=== PATIENT | female | born 1965 | race Caucasian/White ===

== ENCOUNTER 2022-06-15 09:51 | Emergency (ER) | payer OTHER ==
[~2022-06-15] VITALS: Ht 165.1 cm; Wt 81.8 kg
[2022-06-15 09:52] VITALS: BP 179/89
[2022-06-15] MEDS ORDERED: PANT20TA6 PO (10:08)
[2022-06-15] MEDS ORDERED: CYMB60CA4 PO (10:08)
[2022-06-15] MEDS ORDERED: ONDANSETRON 4MG ORAL DISINTEGRATING TAB PO ONE (11:45)
[2022-06-15] MEDS ORDERED: KETOROLAC TROMETHAMINE 10 MG TAB PO ONE (11:45)
[2022-06-15] MEDS ORDERED: ONDA4TAB6 PO (11:45)
[2022-06-15] MEDS ORDERED: MECL1TAB31 PO (11:45)
[2022-06-15] MEDS ORDERED: BACL10TA2 PO (11:45)
== END 2022-06-15 12:01 | disposition home or self-care (01) ==
LOC: M ED 09:51
DX: S06.0X0A Concussion without loss of consciousness, initial encounter (principal); S13.4XXA Sprain of ligaments of cervical spine, initial encounter; W19.XXXA Unspecified fall, initial encounter; Y92.481 Parking lot as the place of occurrence of the external cause; Y99.0 Civilian activity done for income or pay; Z88.5 Allergy status to narcotic agent

== ENCOUNTER → 2022-10-04 | Outpatient (REF) | payer OTHER ==
[~2022-10-04] MED LIST: BACL10TA2 PO; CYMB60CA4 PO; MECL1TAB31 PO; ONDA4TAB6 PO; PANT20TA6 PO
== END ==
LOC: M LAB REF 18:17
PROVIDERS: ATTEND Surgery
DX: M67.461 Ganglion, right knee (principal)

== ENCOUNTER → 2023-06-09 | Outpatient (CLI) | payer OTHER ==
[~2023-06-09] MED LIST changes: +MECL-209 PO; -MECL1TAB31 PO
== END ==
LOC: M RAD 06:53
PROVIDERS: ATTEND Nurse Practitioner Critical Care Medicine
DX: K31.84 Gastroparesis (principal); R10.13 Epigastric pain
CPT/HCPCS: 78264; A9541

== ENCOUNTER → 2024-04-05 | Outpatient (CLI) | payer OTHER ==
[~2024-04-05] MED LIST changes: +ONDA-282 PO; -ONDA4TAB6 PO
== END ==
LOC: M EKG 06:49
PROVIDERS: ATTEND Nurse Practitioner Family
DX: R00.2 Palpitations (principal); R00.0 Tachycardia, unspecified